=== PATIENT | female | born 1945 | race Caucasian/White ===

== ENCOUNTER 2016-06-15 08:02 | Inpatient (IN) | payer OTHER ==
[2016-05-21 13:19] VITALS: BMI 35.0
--- NOTE | 2016-05-21 13:44 | PAT Medication Instructions ---
Service Date May 21, 2016. Current Home Medication List Acetaminophen (Tylenol Arthritis Ext Rel), 1,300 MG PO BID Esomeprazole Magnesium (Nexium), 20 MG PO QAM Levothyroxine Sodium (Levothyroxine Sodium), 1 TAB PO QAM Lisinopril (Prinivil), 20 MG PO QAM Meloxicam (Mobic), 7.5 MG PO QAM Simvastatin (Zocor), 20 MG PO QAM Tramadol (Ultram), 50 MG PO Q4H PRN for Pain Medication Instructions For Your Scheduled Surgery - Hold the following medications per surgeon's instructions: Meloxicam (Mobic), 7.5 MG PO QAM - Hold the following medications the morning of surgery: Lisinopril (Prinivil), 20 MG PO QAM - Take the following medications the morning of surgery with a sip of water: Acetaminophen (Tylenol Arthritis Ext Rel), 1,300 MG PO BID (may take if needed up to 4 hours prior to surgery) Tramadol (Ultram), 50 MG PO Q4H PRN for Pain (may take if needed up to 4 hours prior to surgery) Simvastatin (Zocor), 20 MG PO QAM Levothyroxine Sodium (Levothyroxine Sodium), 1 TAB PO QAM Esomeprazole Magnesium (Nexium), 20 MG PO QAM - Take the following medications as scheduled the night before surgery: Acetaminophen (Tylenol Arthritis Ext Rel), 1,300 MG PO BID If you have any questions please call us at [phone] or [phone] or [phone]
--- NOTE | 2016-05-21 14:20 | DIAGNOSTIC IMAGING REPORT ---
CHEST 2 VIEWS ROUTINE HISTORY: Preop. COMPARISON: None. FINDINGS: The lungs are clear. Cardiac silhouette is normal in size. No pleural effusions. No pneumothorax. Calcified plaque within the thoracic aorta. IMPRESSION: No acute process. Electronically signed by: Ramos Pope M.D. 05/21/2016 2:19 PM Dictated Date/Time: 05/21/2016 2:17 PM
[2016-05-21 14:25] LABS: BASO % 0.5 %; BASO ABS # 0.03 K/uL (0-0.2); COMPLETE YES; EOS % 2.1 %; HEMATOCRIT 39.3 % (37-47); IG% 0.2 %; LYMPH % 28.1 %; LYMPH ABS # 1.57 K/uL (1.2-3.4); MEAN CELL VOLUME 92.7 fL (80-100); MEAN CORPUSCULAR HEMOGLOBIN 31.1 pg (25-34); MEAN CORPUSCULAR HGB CONC 33.6 g/dl (32-36); MEAN PLATELET VOLUME 12.4 fL (7.4-10.4); MONO % 6.6 %; NEUT % 62.5 %; PLATELET COUNT 177 K/uL (130-400); RED BLOOD COUNT 4.24 M/uL (4.2-5.4); WHITE BLOOD COUNT 5.59 K/uL (4.8-10.8)
[2016-05-21 14:35] LABS: PROTHROMBIN TIME (PATIENT) 10.6 SECONDS (9.0-12.0)
[2016-05-21 14:45] LABS: BUN/CREATININE RATIO 18.9 (10-20); CREATININE 1.4 mg/dl (0.60-1.20); POTASSIUM 5.1 mmol/L (3.5-5.1)
[2016-05-21 15:03] LABS: URINE APPEARANCE CLEAR (CLEAR); URINE BILIRUBIN NEG (NEG); URINE COLOR YELLOW; URINE NITRITE NEG (NEG); URINE SPECIFIC GRAVITY 1.028 (1.000-1.030); UROBILINOGEN NEG (NEG); ZZUR CULT IF INDIC CLEAN CATCH NO
[2016-05-21 15:09] LABS: MANUAL MICROSCOPIC REQUIRED? NO; REVIEW REQ? NO
--- NOTE | 2016-06-12 12:05 | HISTORY & PHYSICAL EXAMINATION ---
DATE OF ADMISSION: 06/15/2016 CHIEF COMPLAINT: Left knee pain. HISTORY OF PRESENT ILLNESS: Ms. Thompson is a 71-year-old female with a 10-year history of pain in her left knee. The patient rates her pain a 9/10. She has pain with her daily activities. She has limited standing and walking tolerance. Pain is worse with weightbearing. The patient has had injections and home exercise program without relief. She has failed conservative treatment and is scheduled for a left knee replacement. PAST MEDICAL HISTORY: Hypertension, hypercholesterolemia, sleep apnea, osteoarthritis and GERD. She denies heart disease, diabetes or DVT. PAST SURGICAL HISTORY: D\T\C and tubal ligation. SOCIAL HISTORY: The patient denies alcohol or tobacco use. She lives in a 2-singh home. She is planning to stay with a friend postoperatively and she is retired. FAMILY HISTORY: Negative for DVT. MEDICATIONS: Levothyroxine 112 mcg daily, lisinopril 20 mg daily, Nexium over the counter, Meloxicam 7.5 mg daily, tramadol 50 mg 2 tablets daily, Tylenol Arthritis 650 mg 4 tablets daily, and simvastatin 20 mg daily. ALLERGIES: SULFA. REVIEW OF SYSTEMS: See HPI. Ten other systems reviewed, all negative. PHYSICAL EXAMINATION: VITAL SIGNS: Height 5 foot 5 inches. Weight 211 pounds. BMI is 36. GENERAL: This is a well-developed, well-nourished female who is alert and oriented x3. Mood and affect are appropriate. HEENT: Normocephalic, atraumatic. Mucous membranes are moist and intact. NECK: Supple without lymphadenopathy. HEART: Regular rate and rhythm without murmurs, rubs or gallops. LUNGS: Clear to auscultation without wheezes or rhonchi. ABDOMEN: Soft and nontender. Bowel sounds are equal and active. EXTREMITIES: No ecchymosis, redness or warmth. Thigh and calf are soft and nontender. She has a varus deformity. Range of motion is from 10-100 degrees with +1 laxity. She is neurovascularly intact with +5/5 strength. She has no distal edema. X-RAY EXAMINATION: AP and lateral views show joint space narrowing and osteophyte formation. IMPRESSION: Degenerative joint disease, left knee. PLAN: The patient will be admitted for a left total knee arthroplasty. We will plan on aspirin for DVT prophylaxis. The patient's PCP is Dr. Ino Overton. She is doing home health on discharge.
[~2016-06-15] VITALS: Ht 165.1 cm; Wt 96.9 kg
[2016-06-15] VITALS (8 sets, daily range): BP systolic 124–151; BP diastolic 63–96; PULSE 81–110; TEMP 36.7–36.9; O2SAT 95–97; Ht 165.1 cm; Wt 96.9 kg
[~2016-06-15 08:02] MED LIST: ACET1TAB84 PO; ACETAMINOPHEN 500 MG TAB PO SCH; BUPIVACAINE 0.25% 30 ML VIAL ONE; BUPIVACAINE 0.5 % 5 MG/1 ML PF 10ML VIAL ONE; CEFAZOLIN 2000 MG/60 ML D5W 60 ML IV SCH; DEXAMETHASONE 4 MG TAB PO SCH; ESOM20CA PO; FAMOTIDINE 20 MG TAB PO SCH; GABAPENTIN 300 MG CAP PO SCH; LACTATED RINGER'S 1000ML IV SCH; LEVO112T4 PO; LISI20TA3 PO; MELO7.5T5 PO; METOCLOPRAMIDE HCL 10 MG TAB PO SCH; OXYCODONE HCL 10 MG TABCR (OXYCONTIN) PO SCH; POLYMYXIN B SULFATE 100,000 UNITS in NSS 100ML IR SCH; ROPIVACAINE 5MG/ML 30 ML 150 MG, BUPIVACAINE/EPINEPHR 0.5% MPF 30 ML, KETOROLAC TROMETH... INFIL SCH; SIMV20TA2 PO; TRAM-10 PO; VANCOMYCIN INJ 400 MG in NSS 100ML IR SCH
--- NOTE | 2016-06-15 09:18 | History & Physical Bridge Note ---
H&P Re-Evaluation Bridge Note: I have examined the patient, reviewed the History & Physical and in the interval since the performance of the History & Physical I have noted the following changes of clinical significance: No changes noted
[2016-06-15] MEDS: TRANEXAMIC ACID INJ 1,000 MG in SODIUM CHLORIDE 0.9% 100ML 100 ML IV SCH ×2 (09:30→14:28)
[2016-06-15] MEDS ORDERED: MIDAZOLAM HCL 1 MG/ML 2ML VIAL ONE (09:35)
[2016-06-15] MEDS ORDERED: FENTANYL CITRATE INJ 50 MCG/1 ML 2 ML VIAL ONE (09:35)
[2016-06-15] MEDS ORDERED: LACTATED RINGER'S 1000ML 1,000 ML IV PRN (09:53)
[2016-06-15] MEDS ORDERED: ORTHO JOINT ANESTHETIC ONE (09:57)
[2016-06-15] MEDS ORDERED: BUPIVACAINE/EPINEPHRINE 0.25% 1:200,000 30 ML VIAL ONE (09:57)
[2016-06-15] MEDS ORDERED: BACITRACIN 50000 UNIT VIAL ONE (09:58)
[2016-06-15] MEDS ORDERED: POVIDONE-IODINE OP SOLN 30 ML BTL ONE (09:58)
[2016-06-15] MEDS ORDERED: FENTANYL CITRATE INJ 50 MCG/1 ML 2 ML VIAL IV PRN (10:00)
[2016-06-15] MEDS ORDERED: ONDANSETRON INJ 2 MG/ML 2 ML VIAL IV PRN ×2 (10:00→12:00)
--- NOTE | 2016-06-15 11:47 | [facility] Post Operative Brief Note ---
Immediate Operative Summary Operative Date Jun 15, 2016. Pre-Operative Diagnosis Degenerative Joint Disease Left Knee Post-Operative Diagnosis Degenerative Joint Disease Left Knee Procedure(s) Performed Left Total Knee Arthroplasty Surgeon Dr. Shay Sutton [employer] Surgeon(s) SAMUEL Mclain Estimated Blood Loss 50 ml Findings DJD Specimens A. Left Knee Bone and Tissue Complication(s) None Disposition Recovery Room / PACU
[2016-06-15] MEDS ORDERED: PROPOFOL IV EMULSION 10 MG/ML 20 ML VIAL IV ONE (11:58)
[2016-06-15] MEDS ORDERED: BISACODYL 10 MG SUPP PR PRN (12:00)
[2016-06-15] MEDS ORDERED: ZOLPIDEM TARTRATE 5 MG TAB PO PRN (12:00)
[2016-06-15] MEDS ORDERED: ALUMINUM/MAGNESIUM/SIMETH (MAALOX MAX) 30 ML UDC PO PRN (12:00)
[2016-06-15] MEDS ORDERED: METOCLOPRAMIDE HCL INJ 5 MG/ML 2 ML VIAL IV PRN (12:00)
[2016-06-15] MEDS ORDERED: MoRPHine SULFATE 2 MG/ML CARP IV PRN (12:00)
[2016-06-15] MEDS ORDERED: TRAMADOL HCL 50 MG TAB PO PRN (12:00)
[2016-06-15] MEDS ORDERED: DiphenhydrAMINE HCL 50 MG/ML VIAL IV PRN (12:00)
[2016-06-15] MEDS ORDERED: MAGNESIUM HYDROXIDE SUSP 30 ML UDC PO PRN (12:00)
[2016-06-15] MEDS ORDERED: SOD PHOSPHATE/SOD BIPHOSPHATE ENEMA 132 ML BTL PR PRN (12:00)
--- NOTE | 2016-06-15 13:00 | DIAGNOSTIC IMAGING REPORT ---
TWO VIEWS LEFT KNEE CLINICAL HISTORY: Postoperative examination. FINDINGS: AP and crosstable lateral portable views of the left knee are obtained. A left knee arthroplasty is in near anatomic alignment. There has been undersurface remodeling of the patella. No acute fracture is seen. There are expected postoperative changes around the knee including a surgical drain, soft tissue edema, and subcutaneous gas. IMPRESSION: Expected postoperative changes status post left knee arthroplasty. No acute fracture is seen. Electronically signed by: Jose Kinney M.D. 06/15/2016 12:59 PM Dictated Date/Time: 06/15/2016 12:58 PM
--- NOTE | 2016-06-15 13:27 | Anesthesiology Progress Note ---
Anesthesia Post Op Note Date & Time Jun 15, 2016 at 13:28 Vital Signs Pain Intensity: 0 Vital Signs Past 12 Hours Date Time Temp Pulse Resp B/P Pulse Ox O2 Delivery O2 Flow Rate FiO2 06/15/16 13:15 81 16 114/56 95 Nasal Cannula 2 06/15/16 13:00 36.7 86 13 127/59 95 Nasal Cannula 2 06/15/16 12:50 92 24 132/60 97 Nasal Cannula 2 06/15/16 12:40 80 12 128/64 95 Nasal Cannula 2 06/15/16 12:30 91 24 128/64 97 Mask 10 06/15/16 12:24 37.0 99 16 136/70 96 Mask 10 06/15/16 08:28 36.7 110 20 147/64 97 Room Air Notes Mental Status: alert / awake / arousable, participated in evaluation Pt Amnestic to Procedure: No Nausea / Vomiting: adequately controlled Pain: adequately controlled Airway Patency, RR, SpO2: stable & adequate BP & HR: stable & adequate Hydration State: stable & adequate Neuraxial Anesthesia: was administered, sensory block is resolving Anesthetic Complications: no major complications apparent Pt doing very well. Recall as expected.
--- NOTE | 2016-06-15 14:23 | Discharge Instructions ---
Discharge Instructions Date of Service Jun 15, 2016. Admission Reason for Admission: Left Knee Dengerative Arthritis Discharge Discharge Diagnosis / Problem: sp left total knee Discharge Goals Goal(s): Decrease discomfort, Improve function, Increase independence Activity Recommendations Activity Limitations: per Instructions/Follow-up section . Instructions / Follow-Up Instructions / Follow-Up ACTIVITY RECOMMENDATIONS: SELF CARE INSTRUCTIONS AFTER TOTAL KNEE REPLACEMENT A. You may need to continue a physical therapy program after discharge from the hospital. There are several options available to you. Your doctor will assist you in selecting the best one for you. 1. An out-patient facility 2 to 3 times a week for therapy or home therapy. 2. Continue working on all exercises taught to you in the hospital. Your goals should be to increase bending of your knee to 90 degrees and beyond and to fully straighten your knee. B. You may progress at your own pace from walking with a walker or crutches to a cane; then to no assistive devices. C. Make walking a part of your daily routine. Be up as much as comfortable with rest periods throughout the day. Rest with leg elevation is very important. Use the ice wrap frequently for the first 3-4 weeks. D. There are no restrictions on activities. You may ride in a car, shop, participate in spanish translator and all social activities. E. Wear the long elastic stockings (CARLO hose) 20 hours a day for 2 weeks after surgery. They can be removed several times a day for laundering and for a bath. F. You may shower, no tub baths until cleared by your doctor. SPECIAL CARE INSTRUCTIONS: VERY IMPORTANT TO READ AND REVIEW A. There are a few signs you need to watch for after you are home. Call [facility] if you notice any of the followin. Increased severe knee pain. Some pain is expected especially when you exercise. 2. Increased swelling in your leg or knee; pain or swelling of the calf muscle in either lower leg. 3. Any fluid drainage from the incision. 4. Shortness of breath or chest pain. B. Please call [facility] at if you have any concerns or questions about your operation or recovery. The doctor or his nurse will return your call promptly. C. You must take antibiotics before dental work, bladder, bowel or other surgery. Your doctor will provide you with a permanent care to carry describing this precaution. IMPORTANT: * REMEMBER TO TAKE ASPIRIN, 81 MG, TWICE DAILY FOR 4 WEEKS UNLESS OTHERWISE DIRECTED. THIS IS YOUR BLOOD THINNER. * HIGH RISK PATIENTS MAY BE PRESCRIBED A STRONGER BLOOD THINNER. THIS WILL BE PROVIDED AT DISCHARGE. * CALL IF INCREASED PAIN, REDNESS, DRAINAGE OR FEVER GREATER THAT 101. * WEAR CARLO HOSE 20 HOURS PER DAY FOR 2 WEEKS. DERMABOND Prineo- This is a mesh tape dressing that is covered with glue. It should remain in place until the incision is properly healed, usually 10-14 days. This dressing is designed to naturally slough off. You may trim the excess mesh tape as it peels off. Incision may be briefly wet in a shower. Dry immediately by blotting with a clean, dry towel. Do not bath or swim until instructed by your doctor. Do not scratch, rub, or pick at the dressing. Do not apply any topical ointments or lotions until dressing is completely removed and/or instructed by your doctor. There may be a small piece of suture material at one end of your incision. Do not pull or trim this. If it is bothersome or catching on clothing, you may cover it with a band-aid. FOLLOW UP VISIT: If appointment is not already scheduled: Please call [facility] to make a follow-up appointment for 2 weeks after your surgery at . Current Hospital Diet Patient's current hospital diet: Regular Diet Discharge Diet Recommended Diet: Regular Diet Procedures Procedures Performed: Left Total Knee Arthroplasty Pending Studies Studies pending at discharge: no Medical Emergencies . Who to Call and When: Medical Emergencies: If at any time you feel your situation is an emergency, please call 911 immediately. . Non-Emergent Contact Non-Emergency issues call your: Surgeon . "Provider Documentation" section prepared by Gosia Stock. VTE Core Measure Inpt VTE Proph given/why not?: Other Anticoagulation, T.E.D. Stockings, SCD's
[2016-06-15] MEDS: D5W AND 1/2NSS + 20MEQ KCL 1,000 ML IV SCH (14:29)
--- NOTE | 2016-06-15 14:58 | OPERATIVE REPORT ---
DATE OF OPERATION: 06/15/2016 PREOPERATIVE DIAGNOSIS: Degenerative arthritis, left knee. POSTOPERATIVE DIAGNOSIS: Same. PROCEDURE: Left total knee patient matched implant. SURGEON: Dr. Sutton. COMMUNICATIONS EQUIPMENT INSTALLER: SAMUEL Mclain. ANESTHESIA: Spinal. BLOOD LOSS: 50 mL. REPLACEMENT FLUIDS: 1600 mL crystalloid. DRAINS: Hemovac x2. CULTURES: None. COMPLICATIONS: None. COMPONENTS USED: Sanchez \T\ Nephew Jourchamberino knee system: Femur size 4, tibia size 3 x 11, patella size 35. NOTE: Gato Ga was present and assisted throughout due to the complicated nature of this case. He helped with preparation and setup, first assisted throughout and personally closed the capsule, subcutaneous and skin layers and applied the postoperative dressing. DESCRIPTION: Following satisfactory spinal, the patient was supine. A tourniquet was placed but not inflated. The lower extremity was prepared with ChloraPrep and draped sterilely. Following a surgical time-out, a midline incision was made with a trivector approach. The knee showed severe grade 4 changes throughout with significant bone loss in the medial compartment. The anterior cruciate ligament was absent. The posterior cruciate ligament was excised. The patient matched femoral block was applied. Femoral distal rotation and resection were set and completed. The 4-in-1 block was used to finish preparation of the femur. The patient matched tibial block was applied. Tibial resection was completed. The patella was freehand cut. Soft tissue balancing was completed and a trial reduction showed good tensioning and stability on the collateral ligaments. The patella tracked well. The trial components were removed. The capsule was prepared with the orthopedic cocktail and following irrigation, the components were cemented using Simplex G cement. When the cement had hardened, the knee was checked and showed good stability. Betadine soak was performed while the cement was hardening. The Betadine was then irrigated. Two drains were placed. The arthrotomy was closed with a running suture of V-Loc and #1 Vicryl. The subcutaneous tissues with 2-0 Vicryl and the skin with a running subcuticular stitch of 3-0 V-Loc. Dermabond and a dry dressing were applied and the patient was returned to her bed in stable condition. I attest to the content of the Intraoperative Record and any orders documented therein. Any exceptio ns are noted below.
[2016-06-15] MEDS ORDERED: TRANEXAMIC ACID INJ 1,000 MG in SODIUM CHLORIDE 0.9% 100ML 100 ML IV ONE (19:00)
[2016-06-15] MEDS: CEFAZOLIN IV 2,000 MG in DEXTROSE 5% 50ML 50 ML IV SCH (19:25)
[2016-06-15] MEDS: SENNA 8.6 MG TAB PO SCH (20:49)
[2016-06-15] MEDS: ASPIRIN 81 MG ECTAB PO SCH (20:50)
[2016-06-15] MEDS: OXYCODONE HCL 10 MG TABCR (OXYCONTIN) PO SCH (20:50)
[2016-06-15] MEDS: ACETAMINOPHEN 500 MG TAB PO SCH (20:50)
[2016-06-16] MEDS: D5W AND 1/2NSS + 20MEQ KCL 1,000 ML IV SCH ×2 (00:51→10:18)
[2016-06-16 03:00] VITALS: BP 111/66; PULSE 75; TEMP 36.6; O2SAT 96
[2016-06-16] MEDS: CEFAZOLIN IV 2,000 MG in DEXTROSE 5% 50ML 50 ML IV SCH (03:07)
[2016-06-16] MEDS: ACETAMINOPHEN 500 MG TAB PO SCH ×3 (06:23→21:17)
[2016-06-16] MEDS: LEVOTHYROXINE 112 MCG TAB PO SCH (06:24)
[2016-06-16 06:29] LABS: HEMATOCRIT 32.4 % (37-47); MEAN CELL VOLUME 90.5 fL (80-100); MEAN CORPUSCULAR HEMOGLOBIN 30.4 pg (25-34); MEAN CORPUSCULAR HGB CONC 33.6 g/dl (32-36); MEAN PLATELET VOLUME 11.9 fL (7.4-10.4); PLATELET COUNT 150 K/uL (130-400); RED BLOOD COUNT 3.58 M/uL (4.2-5.4); WHITE BLOOD COUNT 12.02 K/uL (4.8-10.8)
[2016-06-16 07:09] LABS: BUN/CREATININE RATIO 19.1 (10-20); CALCIUM 8.7 mg/dl (8.5-10.1); CREATININE 1.4 mg/dl (0.60-1.20); POTASSIUM 4.7 mmol/L (3.5-5.1)
[2016-06-16 07:38] VITALS: BP 100/61; PULSE 76; TEMP 36.7; O2SAT 97
--- NOTE | 2016-06-16 07:49 | Anesthesiology Progress Note ---
Anesthesia Post Op Note Date & Time Jun 16, 2016 at 07:49 Vital Signs Pain Intensity: 0.0 Vital Signs Past 12 Hours Date Time Temp Pulse Resp B/P Pulse Ox O2 Delivery O2 Flow Rate FiO2 06/16/16 07:38 36.7 76 18 100/61 97 Room Air 06/16/16 07:10 Room Air 06/16/16 03:00 36.6 75 18 111/66 96 CPAP 06/16/16 00:45 BiPAP 06/15/16 23:00 36.9 86 18 131/69 97 Room Air Notes Mental Status: alert / awake / arousable, participated in evaluation Pt Amnestic to Procedure: Yes Nausea / Vomiting: adequately controlled Pain: adequately controlled Airway Patency, RR, SpO2: stable & adequate BP & HR: stable & adequate Hydration State: stable & adequate Neuraxial Anesthesia: sensory block resolved Anesthetic Complications: no major complications apparent
[2016-06-16] MEDS: LISINOPRIL 20 MG TAB PO SCH (08:18)
[2016-06-16] MEDS: MULTIVITAMIN TAB PO SCH (08:19)
[2016-06-16] MEDS: SIMVASTATIN 20 MG TAB PO SCH (08:19)
[2016-06-16] MEDS: PANTOprazole SOD 40 MG TAB PO SCH (08:20)
[2016-06-16] MEDS: ASPIRIN 81 MG ECTAB PO SCH ×2 (08:22→21:18)
[2016-06-16] MEDS: OXYCODONE HCL 10 MG TABCR (OXYCONTIN) PO SCH ×2 (08:23→21:17)
[2016-06-16] MEDS: OXYCODONE HCL IR 5 MG TAB (IMMEDIATE RELEASE) PO PRN ×2 (10:30→16:33)
[2016-06-16 11:30] VITALS: BP 135/74; PULSE 74; TEMP 36.9; O2SAT 100
--- NOTE | 2016-06-16 11:53 | Orthopedic Progress Note ---
Orthopedic Progress Note Date of Service Jun 16, 2016. Subjective Post OP Day: 1 Reports: feeling well, Denies: SOB, calf pain, chest pain, light headedness, nausea / vomiting Additional Notes: States that she started having some mild pain this AM and was given OxyIR prior to my visit. No other complaints. Objective calves soft nontender, N/V intact, dressing C/D/I, A&O x3, toes mobile, hemovac drainage (85 latest shift) Date Time Temp Pulse Resp B/P Pulse Ox O2 Delivery O2 Flow Rate FiO2 06/16/16 11:30 36.9 74 16 135/74 100 Room Air 06/16/16 07:38 36.7 76 18 100/61 97 Room Air 06/16/16 07:10 Room Air 06/16/16 03:00 36.6 75 18 111/66 96 CPAP 06/16/16 00:45 BiPAP 06/15/16 23:00 36.9 86 18 131/69 97 Room Air 06/15/16 19:37 36.7 89 18 136/72 95 Room Air 06/15/16 16:46 36.9 81 18 124/69 95 Nasal Cannula 2.0 06/15/16 15:49 36.7 90 18 130/74 96 Nasal Cannula 2.0 06/15/16 15:15 Nasal Cannula 2.0 06/15/16 14:50 98 20 143/78 97 Nasal Cannula 2.0 06/15/16 14:26 101 20 140/96 96 Nasal Cannula 2.0 06/15/16 13:50 96 Nasal Cannula 2.0 06/15/16 13:50 36.9 95 16 151/63 96 Nasal Cannula 2.0 06/15/16 13:50 96 Nasal Cannula 2.0 06/15/16 13:30 90 17 123/55 93 Nasal Cannula 2 06/15/16 13:15 81 16 114/56 95 Nasal Cannula 2 06/15/16 13:00 36.7 86 13 127/59 95 Nasal Cannula 2 06/15/16 12:50 92 24 132/60 97 Nasal Cannula 2 06/15/16 12:40 80 12 128/64 95 Nasal Cannula 2 06/15/16 12:30 91 24 128/64 97 Mask 10 06/15/16 12:24 37.0 99 16 136/70 96 Mask 10 Laboratory Results 24 Hours: Test 06/16/16 05:56 Hematocrit 32.4 % Hemoglobin 10.9 g/dL Assessment & Plan Assessment: POD 1 s/p Left TKA Plan: PT/OT Planning for Home with OPPT tomorrow at [facility] Inhouse Planning Pain Management: Toradol, Oxycontin, Ultram, Morphine, PO Tylenol, Oxy IR DVT Prophylaxis: TEDs, SCDs, ASA Discharge Planning Discharge Planning: home with oppt Pain Management: Oxycontin, PO Tylenol, Oxy IR DVT Prophylaxis: TEDs, ASA Therapy: Physical Therapy
[2016-06-16 12:02] VITALS: BP 135/74; PULSE 74; O2SAT 100
[2016-06-16] MEDS: KETOROLAC TROMETHAMINE 15 MG/ML VIAL IV. PRN (13:29)
[2016-06-16 15:47] VITALS: BP 127/74; PULSE 77; TEMP 36.9; O2SAT 99
[2016-06-16] MEDS: SENNA 8.6 MG TAB PO SCH (21:18)
[2016-06-16 23:02] VITALS: BP 116/65; PULSE 85; TEMP 36.9; O2SAT 98
[2016-06-17] MEDS: OXYCODONE HCL IR 5 MG TAB (IMMEDIATE RELEASE) PO PRN ×2 (05:00→09:15)
[2016-06-17] MEDS: LEVOTHYROXINE 112 MCG TAB PO SCH (05:43)
[2016-06-17] MEDS: ACETAMINOPHEN 500 MG TAB PO SCH (05:43)
--- NOTE | 2016-06-17 07:07 | Clinical Documentation Query ---
[facility] : CLINICAL DOCUMENTATION QUERY Patient is a 71 year old female who underwent elective left TKA on 06/15. Admission laboratory value review demonstrates a BUN and creatinine of 26 mg/dl and 1.40 mg/dl. Associated estimated GFR is 37 ml/min. There is no documentation of CKD on the H&P. There are no historical EMR values for comparison to this reader. Please clarify as clinically appropriate. Thank you. In your clinical opinion is this patient being managed for: ( ) Chronic kidney disease, stage 3 ( ) CHERYL ( ) Other explanation of clinical findings (Please Explain) ( ) Unable to determine (Please Define) ( ) Need to Discuss ( ) Not Agree The medical record reflects the following clinical findings, treatment, and risk factors. Clinical Indicators: As above Treatment: Serial chemistries, IVF Risk Factors: Age, hypertension Please clarify and document your clinical opinion in the progress notes and discharge summary. Terms such as "probable", "suspected", "likely", "questionable", "possible", or "still to be ruled out" are acceptable. IF IN AGREEMENT, YOU MUST DOCUMENT ABOVE DIAGNOSTIC STATEMENT IN DAILY PROGRESS NOTES AND DISCHARGE SUMMARY. This document is not part of the patient's record. Thank You, Alex Mckinnon, RN [phone]
[2016-06-17] MEDS: KETOROLAC TROMETHAMINE 15 MG/ML VIAL IV. PRN (07:46)
[2016-06-17 07:54] VITALS: BP 118/60; PULSE 75; TEMP 36.6; O2SAT 99
[2016-06-17 08:25] VITALS: O2SAT 99
--- NOTE | 2016-06-17 08:51 | Orthopedic Progress Note ---
Orthopedic Progress Note Date of Service Jun 17, 2016. Subjective Post OP Day: 2 Reports: complaints (had a little more pain off and on since yesterday but tolerating well), feeling well, Denies: SOB, calf pain, chest pain, light headedness, nausea / vomiting Additional Notes: Sitting in chair this AM. States that she had some pain during the night but with medications, she has been doing ok with it. Asking about erythema around knee today. Objective calves soft nontender, N/V intact, incision C/D/I, A&O x3, toes mobile She has more erythema around the knee this AM than yesterday. Nontender on palpation. Not overtly hot to touch compared to other areas of her knee. Appears to be bruising/erythema. Date Time Temp Pulse Resp B/P Pulse Ox O2 Delivery O2 Flow Rate FiO2 06/17/16 08:25 99 Room Air 06/17/16 08:00 Room Air 06/17/16 07:54 36.6 75 14 118/60 99 Room Air 06/17/16 00:00 Room Air 06/16/16 23:02 36.9 85 16 116/65 98 BiPAP 06/16/16 19:50 Room Air 06/16/16 15:47 36.9 77 16 127/74 99 Room Air 06/16/16 12:02 74 100 06/16/16 11:30 36.9 74 16 135/74 100 Room Air Assessment & Plan Assessment: POD 2 s/p Left TKA Increased bruising/erythema Plan: PT/OT Will have Dr Mckinney see pt to look at her knee prior to any decision to dc today. Planning for Home with OPPT today at [facility] if approved by Dr Mckinney for dc Inhouse Planning Pain Management: Toradol, Oxycontin, Ultram, Morphine, PO Tylenol, Oxy IR DVT Prophylaxis: TEDs, SCDs, ASA Discharge Planning Discharge Planning: home with oppt Pain Management: Oxycontin, PO Tylenol, Oxy IR DVT Prophylaxis: TEDs, ASA Therapy: Physical Therapy
[2016-06-17] MEDS ORDERED: ACET-1138 PO (08:53)
[2016-06-17] MEDS ORDERED: SNK PO (08:53)
[2016-06-17] MEDS ORDERED: ONDA8TAB6 PO (08:53)
[2016-06-17] MEDS ORDERED: MORP15TA19 PO (08:53)
[2016-06-17] MEDS ORDERED: RXC5 PO (08:53)
[2016-06-17] MEDS ORDERED: ASPEC81 PO (08:53)
[2016-06-17] MEDS: SIMVASTATIN 20 MG TAB PO SCH (09:12)
[2016-06-17] MEDS: MULTIVITAMIN TAB PO SCH (09:12)
[2016-06-17] MEDS: ASPIRIN 81 MG ECTAB PO SCH (09:12)
[2016-06-17] MEDS: LISINOPRIL 20 MG TAB PO SCH (09:12)
[2016-06-17] MEDS: OXYCODONE HCL 10 MG TABCR (OXYCONTIN) PO SCH (09:13)
[2016-06-17] MEDS: PANTOprazole SOD 40 MG TAB PO SCH (09:13)
[2016-06-17] MEDS ORDERED: CEPH500C2 PO (11:41)
[2016-06-17 13:26] VITALS: BP 118/60; PULSE 75; TEMP 36.6; O2SAT 99
== END 2016-06-17 14:15 | disposition home or self-care (01) | DRG 470 ==
LOC: ENRESERVDT → ENRESERVTM → C.ACU 08:02 → C.3E 11:50
PROVIDERS: ADMIT Orthopaedic Surgery; ATTEND Orthopaedic Surgery
PROC: 0SRD0J9 Replacement of Left Knee Joint with Synthetic Substitute, Cemented, Open Approach (ICD-10-PCS; principal; 2016-06-15 10:15)
DX: M17.12 Unilateral primary osteoarthritis, left knee (principal); K21.9 Gastro-esophageal reflux disease without esophagitis; E78.00 Pure hypercholesterolemia, unspecified; I10 Essential (primary) hypertension; G47.30 Sleep apnea, unspecified; E03.9 Hypothyroidism, unspecified; E66.9 Obesity, unspecified; Z68.35 Body mass index [BMI] 35.0-35.9, adult; Z79.1 Long term (current) use of non-steroidal anti-inflammatories (NSAID); Z99.89 Dependence on other enabling machines and devices; Z79.891 Long term (current) use of opiate analgesic; Z79.899 Other long term (current) drug therapy

== ENCOUNTER 2017-07-12 04:51 | Inpatient (IN) | payer OTHER ==
[2017-06-15 11:12] VITALS: BMI 37.0
--- NOTE | 2017-06-15 11:40 | PAT Medication Instructions ---
Service Date Jun 15, 2017. Current Home Medication List Acetaminophen (Tylenol Arthritis Ext Rel), 1,300 MG PO Q8H PRN for PRN Esomeprazole Magnesium (Nexium), 20 MG PO QAM Levothyroxine Sodium (Levothyroxine Sodium), 1 TAB PO QAM Lisinopril (Prinivil), 20 MG PO QAM Naproxen (Aleve), 440 MG PO PRN Simvastatin (Zocor), 20 MG PO QAM Tramadol (Ultram), 50 MG PO Q4H PRN for Pain Medication Instructions For Your Scheduled Surgery - Check with surgeon for instructions: Naproxen (Aleve), 440 MG PO PRN - Hold the following medications the morning of surgery: Lisinopril (Prinivil), 20 MG PO QAM - Take the following medications the morning of surgery with a sip of water: Tramadol (Ultram), 50 MG PO Q4H PRN for Pain (okay to take up to 4 hours prior to surgery if needed) Acetaminophen (Tylenol Arthritis Ext Rel), 1,300 MG PO Q8H PRN for PRN(okay to take up to 4 hours prior to surgery if needed) Simvastatin (Zocor), 20 MG PO QAM Levothyroxine Sodium (Levothyroxine Sodium), 1 TAB PO QAM Esomeprazole Magnesium (Nexium), 20 MG PO QAM - Take the following medications as scheduled the night before surgery: Tramadol (Ultram), 50 MG PO Q4H PRN for Pain (if needed) Acetaminophen (Tylenol Arthritis Ext Rel), 1,300 MG PO Q8H PRN for PRN (if needed) If you have any questions please call us at [phone] or [phone] or [phone]
[2017-06-15 12:19] LABS: BASO % 0.6 %; BASO ABS # 0.03 K/uL (0-0.2); EOS % 4.3 %; EOS ABS # 0.21 K/uL (0-0.5); HEMATOCRIT 37.2 % (37-47); HEMOGLOBIN 12.8 g/dL (12.0-16.0); IG# 0.02 K/uL (0.00-0.02); LYMPH % 26.7 %; LYMPH ABS # 1.32 K/uL (1.2-3.4); MEAN CELL VOLUME 88.8 fL (80-100); MEAN CORPUSCULAR HEMOGLOBIN 30.5 pg (25-34); MEAN CORPUSCULAR HGB CONC 34.4 g/dl (32-36); MEAN PLATELET VOLUME 12.2 fL (7.4-10.4); MONO % 6.5 %; MONO ABS # 0.32 K/uL (0.11-0.59); NEUT % 61.5 %; NEUT ABS # 3.04 K/uL (1.4-6.5); PLATELET COUNT 157 K/uL (130-400); RED CELL DISTRIBUTION WIDTH CV 13.6 % (11.5-14.5); RED CELL DISTRIBUTION WIDTH SD 44.1 fL (36.4-46.3); WHITE BLOOD COUNT 4.94 K/uL (4.8-10.8)
[2017-06-15 12:26] LABS: ALBUMIN 3.7 gm/dl (3.4-5.0); CALCIUM 8.8 mg/dl (8.5-10.1); CREATININE 1.31 mg/dl (0.60-1.20); POTASSIUM 4.7 mmol/L (3.5-5.1)
[2017-06-15 12:28] LABS: PTT PATIENT 24.8 SECONDS (21.0-31.0)
--- NOTE | 2017-06-15 12:30 | DIAGNOSTIC IMAGING REPORT ---
CHEST 2 VIEWS ROUTINE CLINICAL HISTORY: PAT preoperative evaluation COMPARISON STUDY: 05/21/2016 FINDINGS: The bones soft tissues and hemidiaphragms are normal. The cardiomediastinal silhouette is normal. The lungs are clear. The pulmonary vasculature is normal. IMPRESSION: Negative chest. The above report was generated using voice recognition software. It may contain grammatical, syntax or spelling errors. Electronically signed by: Esteban Astudillo M.D. 06/15/2017 12:28 PM Dictated Date/Time: 06/15/2017 12:28 PM
[2017-06-15 12:49] LABS: HEMOGLOBIN A1C 5.8 % (4.5-5.6)
--- NOTE | 2017-06-23 14:28 | HISTORY & PHYSICAL EXAMINATION ---
DATE OF ADMISSION: 07/12/2017 CHIEF COMPLAINT: Right knee pain. HISTORY OF PRESENT ILLNESS: Aisha is a 72-year-old female with a multiple-year history of right knee pain. The patient rates her pain an 8/10. She has pain with her daily activities. She has limited standing and walking tolerance. Pain is worse with weightbearing. The patient has had physical therapy, tramadol, Tylenol and Aleve without relief. She has failed conservative treatment and is scheduled for right knee replacement. PAST MEDICAL HISTORY: Hypertension, hypercholesterolemia, sleep apnea, thyroid disease. She denies heart disease, diabetes or DVT. PAST SURGICAL HISTORY: Left TKA and tubal ligation. SOCIAL HISTORY: The patient denies alcohol or tobacco use. She lives in a 2-story home. She is retired. FAMILY HISTORY: Negative for DVT. MEDICATIONS: Tirosint 112 mcg, simvastatin 20 mg, lisinopril 20 mg, tramadol 50 mg, Nexium 24HR, Aleve 220 p.r.n. ALLERGIES: SULFA. REVIEW OF SYSTEMS: See HPI. Ten other systems reviewed, all negative. PHYSICAL EXAMINATION: VITAL SIGNS: Height 5 feet 5 inches, weight 230 pounds, BMI 38. GENERAL: This is a well-developed, well-nourished female who is alert and oriented x3. Mood and affect are appropriate. HEENT: Normocephalic, atraumatic. Mucous membranes are moist and intact. NECK: Supple without lymphadenopathy. HEART: Regular rate and rhythm without murmurs, rubs or gallops. LUNGS: Clear to auscultation without wheezes or rhonchi. ABDOMEN: Soft and nontender. Bowel sounds are equal and active. EXTREMITIES: No ecchymosis, redness or warmth. She has varus deformity. Range of motion is from 5-110 degrees with +2 laxity. She is neurovascularly intact with +5/5 strength. She has mild effusion, mild distal edema. X-RAY EXAMINATION: AP and lateral views show joint space narrowing and osteophyte formation. IMPRESSION: Degenerative joint disease, right knee. PLAN: The patient will be admitted for right total knee arthroplasty. We are going to plan on aspirin 325 mg for DVT prophylaxis. The patient would like to do outpatient physical therapy at [facility]. PCP is Dr. Rosenthal of [place].
[~2017-07-12] VITALS: Ht 167.6 cm; Wt 106.7 kg
[2017-07-12] VITALS (9 sets, daily range): BP systolic 109–146; BP diastolic 53–84; PULSE 75–97; TEMP 36.6–37.1; O2SAT 93–98; Ht 167.6 cm; Wt 106.7 kg
[~2017-07-12 04:51] MED LIST changes: -ACETAMINOPHEN 500 MG TAB PO SCH; -BUPIVACAINE 0.25% 30 ML VIAL ONE; -BUPIVACAINE 0.5 % 5 MG/1 ML PF 10ML VIAL ONE; -CEFAZOLIN 2000 MG/60 ML D5W 60 ML IV SCH; -DEXAMETHASONE 4 MG TAB PO SCH; -ESOM20CA PO; -FAMOTIDINE 20 MG TAB PO SCH; -GABAPENTIN 300 MG CAP PO SCH; -LACTATED RINGER'S 1000ML IV SCH; -MELO7.5T5 PO; -METOCLOPRAMIDE HCL 10 MG TAB PO SCH; +NAPR1TAB9 PO; -OXYCODONE HCL 10 MG TABCR (OXYCONTIN) PO SCH; -POLYMYXIN B SULFATE 100,000 UNITS in NSS 100ML IR SCH; +RANITAB33 PO; -ROPIVACAINE 5MG/ML 30 ML 150 MG, BUPIVACAINE/EPINEPHR 0.5% MPF 30 ML, KETOROLAC TROMETH... INFIL SCH; -VANCOMYCIN INJ 400 MG in NSS 100ML IR SCH
[2017-07-12] MEDS ORDERED: METOCLOPRAMIDE HCL 10 MG TAB PO SCH (06:00)
[2017-07-12] MEDS ORDERED: ACETAMINOPHEN 500 MG TAB PO SCH (06:00)
[2017-07-12] MEDS ORDERED: LACTATED RINGER'S 1000ML 1,000 ML IV SCH (06:00)
[2017-07-12] MEDS ORDERED: LACTATED RINGER'S 1000ML 500 ML IV SCH (06:00)
[2017-07-12] MEDS ORDERED: ROPIVACAINE 5MG/ML 30 ML 150 MG, BUPIVACAINE 0.5% MPF INJ 30 ML, EpINEphrine HCL INJ 0.... INFIL SCH ×16 (06:00)
[2017-07-12] MEDS ORDERED: FAMOTIDINE 20 MG TAB PO SCH (06:00)
[2017-07-12] MEDS ORDERED: GABAPENTIN 300 MG CAP PO SCH (06:00)
[2017-07-12] MEDS ORDERED: TRANEXAMIC ACID INJ 1,000 MG x 2 Bags IV SCH ×2 (06:00)
[2017-07-12] MEDS ORDERED: DEXAMETHASONE 4 MG TAB PO SCH (06:00)
[2017-07-12] MEDS ORDERED: CEFAZOLIN 2000MG IV PUSH 15 ML IV SCH (06:00)
[2017-07-12 06:03] LABS: CALCIUM 9.7 mg/dl (8.5-10.1); CREATININE 1.39 mg/dl (0.60-1.20); POTASSIUM 4.4 mmol/L (3.5-5.1)
[2017-07-12] MEDS ORDERED: BUPIVACAINE 0.5 % 5 MG/1 ML PF 10ML VIAL ONE (06:27)
[2017-07-12] MEDS ORDERED: ORTHO JOINT ANESTHETIC ONE (06:38)
[2017-07-12] MEDS ORDERED: BACITRACIN 50000 UNIT VIAL ONE (06:39)
[2017-07-12] MEDS ORDERED: POVIDONE-IODINE OP SOLN 30 ML BTL ONE (06:39)
[2017-07-12] MEDS ORDERED: FENTANYL CITRATE INJ 50 MCG/1 ML 2 ML VIAL ONE (06:44)
[2017-07-12] MEDS ORDERED: MIDAZOLAM HCL 1 MG/ML 2ML VIAL ONE ×2 (06:44→07:27)
[2017-07-12] MEDS ORDERED: ONDANSETRON INJ 2 MG/ML 2 ML VIAL IV PRN ×2 (06:45→09:15)
[2017-07-12] MEDS ORDERED: HYDROmorphone INJ 0.5 MG/0.5 ML SYR IV PRN (06:45)
[2017-07-12] MEDS ORDERED: EpHEDrine SULFATE INJ 50 MG/ML AMP IV PRN (06:45)
[2017-07-12] MEDS ORDERED: FENTANYL CITRATE INJ 50 MCG/1 ML 2 ML VIAL IV PRN (06:45)
[2017-07-12] MEDS ORDERED: ATROPINE SULFATE 0.1 MG/ML 5ML SYR IV PRN (06:45)
[2017-07-12] MEDS ORDERED: PHENYLEPHRINE HCL INJ 10 MG/ML VIAL ONE (07:52)
[2017-07-12] MEDS ORDERED: ESMOLOL HCL 10 MG/ML 10 ML VIAL ONE (07:52)
[2017-07-12] MEDS ORDERED: PROPOFOL IV EMULSION 10 MG/ML 20 ML VIAL IV ONE (07:52)
[2017-07-12] MEDS ORDERED: METOPROLOL TARTRATE 1 MG/ML VIAL ONE (08:25)
--- NOTE | 2017-07-12 09:00 | [facility] Post Operative Brief Note ---
Immediate Operative Summary Operative Date Jul 12, 2017. Pre-Operative Diagnosis Degenerative joint disease, right knee Post-Operative Diagnosis Same as preop Procedure(s) Performed Right total knee arthroplasty Surgeon Dr. Rojas Assistant Vice President Surgeon(s) Charla Ga PA-C Estimated Blood Loss 25 cc Findings Consistent with Post-Op Diagnosis Fluids (cc crystalloids) 1900 Specimens A: right knee bone and tissue Drains None Anesthesia Type MAC Spinal Regional Complication(s) none Disposition Disposition: Recovery Room / PACU
[2017-07-12] MEDS ORDERED: MoRPHine SULFATE 4 MG/ML 1 ML CARP\\VIAL IV PRN (09:15)
--- NOTE | 2017-07-12 09:19 | [facility] Operative Report ---
Operative Report Operative Date Jul 12, 2017. Pre-Operative Diagnosis Degenerative joint disease, right knee Post-Operative Diagnosis Same as preop Procedure(s) Performed Right total knee arthroplasty Surgeon Dr. Rojas Lemon Grower Surgeon(s) Charla Ga PA-C Estimated Blood Loss 25 cc Findings See dictated op note Fluids 1900 Specimens A: right knee bone and tissue Drains None Anesthesia Type MAC Spinal Regional Complication(s) none Disposition Recovery Room / PACU Indications The patient is a 72-year-old female presents with long history of severe right knee tricompartmental DJD and failed outpatient conservative treatments including NSAIDs, bracing, injections and home walking/exercise program. The patient's symptoms have progressed to the point where it has been difficult to perform normal activities of daily living. I have indicated the patient for a right total knee arthroplasty, the risks and benefits and complications of the procedure include but are not limited to infection bleeding damage to bone, nerves, vessels, surrounding soft tissue, blood clots, loss of function, leg length discrepancy, dislocation, failure of the components, need for additional surgery and . The patient wished to proceed with surgery at this time and informed consent was obtained. Appropriate clearances were obtained. Description of Procedure The patient was taken to the operating room and appropriate anesthesia was administered. She was placed supine on the operating room table. A foot roll was placed so we could flex the knee during the procedure as needed. Pneumatic tourniquet was placed on the right upper thigh. The right lower extremity was prepped and draped in usual sterile fashion. Exam demonstrated that she had a varus knee fairly good range of motion. After the leg was sterilely prepped and draped, it was elevated, exsanguinated with Esmarch bandage. Pneumatic tourniquet was raised to 300 mmHg. A midline incision was made anteriorly across the left knee. Skin was incised sharply and subcutaneous flaps were elevated. Incision was made through the medial retinaculum extended up in the mid third of the quadriceps tendon and extended down to the medial tibial tubercle. Intraarticular findings demonstrated that she had significant DJD medial compartment and PFJ [id number] with a varus knee. She did have some tricompartmental osteophytes. The [employer] 2.0 total knee arthroplasty system was used using [employer] (FIG)e MRI templating and her femur sized for a 4, tibia for a 3 component. To expose the knee the infrapatellar fat pad was resected. The lateral synovial bands were released. The cruciate ligaments were resected. The meniscal remnants were resected. The fat pad over the anterior femur just above the articular surface for placement of the component in that area was resected. The knee was flexed and retractors were placed and the custom femoral cutting block was pinned in position and the distal femoral cut was made. Then the 5-in-1 cutting block was placed and the anterior, posterior and chamfer cuts were made for the 5 femur. Then attention was taken back to the tibia which was subluxed anteriorly and the custom tibial cutting block was pinned in position and the proximal tibial cut was made. Then we assessed ligamentous balance in extension and flexion utilizing the 19mm spacer block and drop memo and did some releases around the medial side to help with the balance. At this time, the tibia was then resubluxed and the 3 tibial trial was placed in position, externally rotated laterally with the tibial tubercle. The tibial drill and punch for the stem was used. Next the 4 femoral trial was inserted, centered and the notch cutting devices were used to finish prepping the femur. A trial 10mm tibial articulating surface was inserted assessed ligamentous balance again. The 9 trial insert gave balanced ligaments through full range of motion. At this time the knee was extended and a subperiosteal peel lateral release was performed around the patella. Patella width was measured and the patella was prepped utilizing free hand technique and the 3 drill holes were made for the pegs. The excess lateral facet was beveled off to prevent any impingement. A 32mm circular patella button was placed and the patella tracked centrally. The trials were removed; the orthopedic anesthetic cocktail was injected per protocol. The knee was copiously irrigated with pulsatile lavage antibiotic solution with bacitracin. The final components were then cemented into place and trial tibial articulating surface inserted. Final components were the 4 Oxinium posterior stabilized [employer] 2.0 left femoral component, size 3 primary tibial baseplate and 32mm patella. Once the cement cured, we trialed once more with the 9mm tibial articulating surface and found the knee to be stable throughout full ROM. The trial component was removed and the final 9mm tibial articular surface was inserted. We copiously irrigated out the knee with pulsatile lavage antibiotic solution and bacitracin. The quadriceps and medial retinaculum were closed with interrupted [id number] #1 Vicryl sutures. The knee was taken through full range of motion and repair was secure. Subcutaneous tissues were closed with interrupted 2-0 Vicryl sutures followed by 3-0 V lock and then the skin was closed with dermabond prineo skin closure system. The sterile dressings were applied and an Sanya wrap from the foot to thigh. Tourniquet was let down and the patient had good capillary refill to the extremity. The patient tolerated the procedure well and was taken to the PACU in stable condition. Due to the complex nature of the procedure, the entire surgery was performed with the operational assistance of Gato Ga PA-C. The trade sales assistant, under direct supervision, was involved in the actual performance of all aspects of the surgical procedure including hemostasis, tissue retraction and incision, instrument management, patient positioning, and wound closure. I attest to the content of the Intraoperative Record and any orders documented therein. Any exceptions are noted below. I attest to the content of the Intraoperative Record and any orders documented therein. Any exceptions are noted below.
--- NOTE | 2017-07-12 10:08 | DIAGNOSTIC IMAGING REPORT ---
R KNEE 1 OR 2 VIEWS ROUTINE HISTORY: 72 years-old Female AP/LATERAL IN PACU RIGHT KNEE status post right knee total joint arthroplasty. Degenerative joint disease. COMPARISON: None available TECHNIQUE: 2 views of the right knee FINDINGS: Postoperative changes from recent right knee total joint arthroplasty and patellar resurfacing. Alignment is satisfactory without retained radiopaque foreign body or periprosthetic fracture identified. Expected postsurgical soft tissue swelling and deep tissue air with surgical drain in place. Peripheral vascular disease. IMPRESSION: Right knee total arthroplasty and patellar resurfacing with satisfactory alignment. The above report was generated using voice recognition software. It may contain grammatical, syntax or spelling errors. Electronically signed by: Juan Lazo M.D. 07/12/2017 10:07 AM Dictated Date/Time: 07/12/2017 10:06 AM
--- NOTE | 2017-07-12 10:09 | Anesthesiology Progress Note ---
Anesthesia Post Op Note Date & Time Jul 12, 2017 at 10:03 Vital Signs Pain Intensity: 0 Vital Signs Past 12 Hours Date Time Temp Pulse Resp B/P (MAP) Pulse Ox O2 Delivery O2 Flow Rate FiO2 07/12/17 09:55 90 20 108/57 (71) 98 Nasal Cannula 2 07/12/17 09:45 83 19 119/58 (81) 95 Nasal Cannula 2 07/12/17 09:36 36.4 81 18 114/61 (85) 100 Nasal Cannula 2 07/12/17 05:36 36.7 78 20 146/84 96 Room Air Notes Mental Status: alert / awake / arousable, participated in evaluation Pt Amnestic to Procedure: Yes Nausea / Vomiting: adequately controlled Pain: adequately controlled Airway Patency, RR, SpO2: stable & adequate BP & HR: stable & adequate Hydration State: stable & adequate Neuraxial Anesthesia: was administered, sensory block is resolving Anesthetic Complications: no major complications apparent The patient is a 72 y/o with a history of HTN, DLD, GERD, hypothyroidism and CKD stage III s/p R TKA. The patient was noted to have an irregular heart rhythm preoperatively. A 12 lead EKG showed NSR with premature supraventricular complexes HR 90. The patient's EKG on 06/16/17 was NSR with no ectopy. The patient is asymptomatic and denies a history of palpitations, all other VSS. Intraoperatively and in recovery, the patient continued to have premature supraventricular complexes. She was given a total of 4mg IV metoprolol and Esmolol 15mg IV in the OR for HRs in the 90s which improved her HR to the 80s. The patient feels well in PACU with no complaints. She will be transferred to telemetry overnight for closer monitoring. Internal medicine was consulted and a full report was given.
--- NOTE | 2017-07-12 10:52 | Medical Consult ---
Consultation Date of Consultation: Jul 12, 2017. Attending Physician: Michoacano Rojas D.O. History of Present Illness Patient is a pleasant 72yo C female with history of HTN, HLP and CKD presenting with chronic right knee pain s/p right TKA performed today. We have been consulted to assess frequent ectopy and episodes of tachycardia noted on court recording monitor. Patient had an uncomplicated surgery and is presently resting comfortably without complaint. She denies chest pain, SOB, palpitations or flutter in her chest. She has no known cardiac history, no history of arrhythmia or CAD. She is mildly active and able to climb a flight of stairs without symptoms. Family History Patient denies any relevant family history Social History Smoking Status: Never Smoker Smokeless Tobacco Use: No Alcohol Use: none Drug Use: none Housing Status: lives alone Occupation Status: retired Allergies Coded Allergies: Sulfa Antibiotics (Verified Allergy, Unknown, OCCURED AN INFANT, NO RXN KNOWN, 07/12/17) Home Medications Simvastatin 20mg po daily Lisinopril 20mg po daily Synthroid 112mcg po daily Tramadol PRN Nexium Aleve PRN Current Inpatient Medications Current Inpatient Medications Medications (Trade) Dose Ordered Sig/Vadim Route Start Time Stop Time Status Last Admin Dose Admin Cefazolin Sodium 15 ml @ 3.75 mls/ min PREOP IV 07/12/17 06:00 07/12/17 18:00 07/12/17 07:20 3.75 MLS/MIN Acetaminophen (Tylenol Tab) 1,000 mg PREOP PO 07/12/17 06:00 07/12/17 18:00 07/12/17 06:05 1,000 MG Dexamethasone (Decadron Tab) 8 mg PREOP PO 07/12/17 06:00 07/12/17 18:00 07/12/17 06:04 8 MG Famotidine (Pepcid Tab) 20 mg PREOP PO 07/12/17 06:00 07/12/17 18:00 07/12/17 06:04 20 MG Gabapentin (Neurontin Cap) 300 mg PREOP PO 07/12/17 06:00 07/12/17 18:00 07/12/17 06:04 300 MG Metoclopramide HCl (Reglan Tab) 10 mg PREOP PO 07/12/17 06:00 07/12/17 18:00 07/12/17 06:04 10 MG Tranexamic Acid 1000 mg/Sodium Chloride 110 ml @ 660 mls/hr TODAY@06,0630 IV 07/12/17 06:00 07/12/17 12:00 07/12/17 07:10 660 MLS/HR Ropivacaine 150 mg/Bupivacaine HCl 30 ml/ Epinephrine HCl 0.15 mg/Ketorolac Tromethamine 30 mg/Dexamethasone Sodium Phosphate 4 mg/Ketamine HCl 10 mg/Clonidine 100 mcg/Sodium Chloride 93.35 ml @ 0 mls/hr TODAY@06 INFIL 07/12/17 06:00 07/12/17 12:00 07/12/17 08:45 1 MLS/HR Lactated Ringer's 1,000 ml @ 15 mls/hr Q24H IV 07/12/17 06:00 07/13/17 05:59 07/12/17 06:03 15 MLS/HR Fentanyl Citrate (Fentanyl Inj) 25 mcg Q5M PRN IV 07/12/17 06:45 07/12/17 11:45 Hydromorphone HCl (Dilaudid Inj) 0.5 mg Q5M PRN IV 07/12/17 06:45 07/12/17 11:45 Ondansetron HCl (Zofran Inj) 4 mg ONE PRN IV 07/12/17 06:45 07/12/17 11:45 Ephedrine Sulfate (EpHEDrine SULFATE INJ) 5 mg Q5M PRN IV 07/12/17 06:45 07/12/17 11:45 Atropine Sulfate (Atropine Sulfate 0.1mg/ml Inj) 0.5 mg Q1M PRN IV 07/12/17 06:45 07/12/17 11:45 Levothyroxine Sodium (Synthroid Tab) 112 mcg DAILYBB PO 07/13/17 07:00 08/12/17 06:59 UNV Lisinopril (Zestril Tab) 20 mg QAM PO 07/12/17 09:00 08/11/17 08:59 UNV Simvastatin (Zocor Tab) 20 mg QAM PO 07/12/17 09:00 08/11/17 08:59 UNV Sodium Chloride 1,000 ml @ 100 mls/hr Q10H IV 07/12/17 09:06 07/13/17 09:05 UNV Cefazolin Sodium 2000 mg/Dextrose 65 ml @ 100 mls/hr Q8H IV 07/12/17 09:15 07/12/17 17:53 UNV Oxycodone HCl (Roxicodone Immediate Rel Tab) 1 TABLET FOR PAIN RATING... Q4H PRN PO 07/12/17 09:15 07/26/17 09:14 Morphine Sulfate (MoRPHine SULFATE INJ) 4 mg Q4H PRN IV 07/12/17 09:15 07/26/17 09:14 Acetaminophen (Tylenol Tab) 1,000 mg Q8H PO 07/12/17 09:15 08/11/17 09:14 UNV Senna (Senokot Tab) 17.2 mg HS PO 07/12/17 21:00 08/11/17 20:59 UNV Docusate Sodium (coLACE CAP) 100 mg BID PO 07/12/17 21:00 08/11/17 20:59 UNV Diphenhydramine HCl (Benadryl Cap) 25 mg Q8H PRN PO 07/12/17 09:15 08/11/17 09:14 Multivitamins (Multivitamin Tab) 1 tab QAM PO 07/13/17 09:00 08/12/17 08:59 UNV Ondansetron HCl (Zofran Inj) 4 mg Q6H PRN IV 07/12/17 09:15 08/11/17 09:14 Pantoprazole Sodium (Protonix Tab) 40 mg QAM PO 07/13/17 09:00 08/12/17 08:59 UNV Aspirin (Ecotrin Tab) 325 mg BID PO 07/12/17 21:00 08/11/17 20:59 UNV Ketorolac Tromethamine (Toradol Inj) 30 mg Q6H IV. 07/12/17 09:15 07/14/17 09:14 UNV Review of Systems Constitutional: No fever, No chills Respiratory: No cough, No sputum, No wheezing, No shortness of breath Cardiovascular: No chest pain, No orthopnea, No palpitations Abdomen: No pain, No nausea, No vomiting, No diarrhea, No constipation Genitourinary - Female: No dysuria, No urinary frequency, No urinary urgency Physical Exam Date Time Temp Pulse Resp B/P (MAP) Pulse Ox O2 Delivery O2 Flow Rate FiO2 07/12/17 10:30 87 20 150/60 98 Nasal Cannula 2 07/12/17 10:15 36.6 87 18 137/59 98 Nasal Cannula 2 07/12/17 10:05 85 19 106/67 (83) 100 Nasal Cannula 2 07/12/17 09:55 90 20 108/57 (71) 98 Nasal Cannula 2 07/12/17 09:45 83 19 119/58 (81) 95 Nasal Cannula 2 07/12/17 09:36 36.4 81 18 114/61 (85) 100 Nasal Cannula 2 07/12/17 05:36 36.7 78 20 146/84 96 Room Air General Appearance: WD/WN, no apparent distress Head: normocephalic, atraumatic Eyes: normal inspection, PERRL, sclerae normal ENT: normal ENT inspection Neck: supple, no adenopathy, no JVD Respiratory/Chest: chest non-tender, lungs clear, normal breath sounds, no respiratory distress, no accessory muscle use Cardiovascular: regular rate, rhythm (with occasional ectopy), no edema, no gallop, no murmur Abdomen/GI: normal bowel sounds, non tender, soft Skin: normal color, warm/dry, no rash Laboratory Results Last 24 Hours Test 07/12/17 05:24 Sodium Level 139 mmol/L Potassium Level 4.4 mmol/L Chloride Level 107 mmol/L Carbon Dioxide Level 23 mmol/L Anion Gap 9.0 mmol/L Blood Urea Nitrogen 24 mg/dl Creatinine 1.39 mg/dl Est Creatinine Clear Calc Drug Dose 43.4 ml/min Estimated GFR () 43.2 Estimated GFR (Non- 37.2 BUN/Creatinine Ratio 17.4 Random Glucose 130 mg/dl Calcium Level 9.7 mg/dl Assessment & Plan 72yo C female s/p right TKA performed today with frequent ectopy noted on monitor. 1. Ectopy - patient is presently hemodynamically stable and asymptomatic, in NSR on monitor with occasional narrow complex ectopic beat most consistent with PAC. No cardiac history. Most likely secondary to increased catecholamine state of surgery. -Check magnesium and phosphorous x 1 and correct as needed -Check thyroid studies -Monitor on telemetry overnight 2. Hypertension - patient presently normotensive. -Resume home Lisinopril at discretion of primary team 3. Hyperlipidemia - stable -Resume home Simvastatin 4. CKD - BUN/Cr are at baseline, presently 24 and 1.39 respectively. -Continue to monitor BUN/Cr, UOP -Renal dosing where appropriate -Avoid nephrotoxic agents 5. Hypothyroidism - stable -Check thyroid function tests -Resume home Synthroid Thank you for this consult
[2017-07-12] MEDS: SODIUM CHLORIDE 0.9% 1000ML 1,000 ML IV SCH ×2 (11:56→21:14)
[2017-07-12] MEDS: KETOROLAC TROMETHAMINE 15 MG/ML VIAL IV. SCH ×2 (12:05→17:15)
[2017-07-12 12:24] LABS: PHOSPHORUS 3.1 mg/dl (2.5-4.9)
[2017-07-12] MEDS: SIMVASTATIN 20 MG TAB PO SCH (13:11)
[2017-07-12] MEDS: LISINOPRIL 20 MG TAB PO SCH (13:12)
[2017-07-12] MEDS: ACETAMINOPHEN 500 MG TAB PO SCH ×2 (13:12→21:15)
--- NOTE | 2017-07-12 13:26 | Orthopedic Progress Note ---
Orthopedic Progress Note Date of Service Jul 12, 2017. Subjective Additional Notes: Post-operative progress note Patient seen laying in bed, comfortable, pain well controlled, no acute issues. Objective NAD, AOx3 RLE NVSI +EHL/FHL/TA/GS SILT grossly, CR< 2 seconds, +2DP pulse, compartment soft NT, dressing CDI Date Time Temp Pulse Resp B/P (MAP) Pulse Ox O2 Delivery O2 Flow Rate FiO2 07/12/17 12:18 92 17 123/74 (90) 93 Nasal Cannula 2.0 07/12/17 11:18 91 17 126/63 (84) 94 Nasal Cannula 2.0 07/12/17 10:48 36.7 87 18 127/73 (91) 98 Nasal Cannula 2.0 07/12/17 10:30 87 20 150/60 98 Nasal Cannula 2 07/12/17 10:15 36.6 87 18 137/59 98 Nasal Cannula 2 07/12/17 10:05 85 19 106/67 (83) 100 Nasal Cannula 2 07/12/17 09:55 90 20 108/57 (71) 98 Nasal Cannula 2 07/12/17 09:45 83 19 119/58 (81) 95 Nasal Cannula 2 07/12/17 09:36 36.4 81 18 114/61 (85) 100 Nasal Cannula 2 07/12/17 05:36 36.7 78 20 146/84 96 Room Air Assessment & Plan Assessment: s/p R TKA Plan: -Ancef x- 24 -DVT ppx: EC ASA BID -WBAT RLE -PT/OT -Pain controlled -PO XR: Well aligned well fixed total knee prosthesis without evidence of feature, dislocation. -am labs -Admitted to tele post op -Medicine consulted
[2017-07-12] MEDS: OXYCODONE HCL IR 5 MG TAB (IMMEDIATE RELEASE) PO PRN (14:09)
[2017-07-12] MEDS ORDERED: MAGNESIUM SULFATE 1GM / D5W 1 GM in PREMIXED IN D5W 100 ML IV ONE (16:00)
[2017-07-12] MEDS: CEFAZOLIN IV 2,000 MG in SYRINGE 0 ML IV SCH (17:15)
[2017-07-12] MEDS: DOCUSATE SODIUM 100 MG CAP PO SCH (21:17)
[2017-07-12] MEDS: SENNA 8.6 MG TAB PO SCH (21:18)
[2017-07-12] MEDS: ASPIRIN 325 MG ECTAB PO SCH (21:18)
[2017-07-12] MEDS: PANTOprazole SOD 40 MG TAB PO SCH (21:19)
[2017-07-13] VITALS (11 sets, daily range): BP systolic 109–145; BP diastolic 61–80; PULSE 75–96; TEMP 36.6–36.9; O2SAT 95–99
[2017-07-13] MEDS: CEFAZOLIN IV 2,000 MG in SYRINGE 0 ML IV SCH (00:19)
[2017-07-13] MEDS: KETOROLAC TROMETHAMINE 15 MG/ML VIAL IV. SCH ×3 (00:20→12:12)
[2017-07-13] MEDS: SODIUM CHLORIDE 0.9% 1000ML 1,000 ML IV SCH (05:47)
[2017-07-13] MEDS: ACETAMINOPHEN 500 MG TAB PO SCH ×3 (05:48→22:05)
[2017-07-13] MEDS: LEVOTHYROXINE 112 MCG TAB PO SCH (05:48)
--- NOTE | 2017-07-13 07:29 | Discharge Instructions ---
Discharge Instructions Date of Service Jul 13, 2017. Admission Reason for Admission: Right Knee Osteoarthritis Discharge Discharge Diagnosis / Problem: sp right TKA Discharge Goals Goal(s): Decrease discomfort, Improve function, Increase independence Activity Recommendations Activity Limitations: per Instructions/Follow-up section . Instructions / Follow-Up Instructions / Follow-Up ACTIVITY RECOMMENDATIONS: SELF CARE INSTRUCTIONS AFTER TOTAL KNEE REPLACEMENT A. You may need to continue a physical therapy program after discharge from the hospital. There are several options available to you. Your doctor will assist you in selecting the best one for you. 1. An out-patient facility 2 to 3 times a week for therapy or home therapy. 2. Continue working on all exercises taught to you in the hospital. Your goals should be to increase bending of your knee to 90 degrees and beyond and to fully straighten your knee. B. You may progress at your own pace from walking with a walker or crutches to a cane; then to no assistive devices. C. Make walking a part of your daily routine. Be up as much as comfortable with rest periods throughout the day. Rest with leg elevation is very important. Use the ice wrap frequently for the first 3-4 weeks. D. There are no restrictions on activities. You may ride in a car, shop, participate in technical services coordinator and all social activities. E. Wear the long elastic stockings (CARLO hose) 20 hours a day for 2 weeks after surgery. They can be removed several times a day for laundering and for a bath. F. You may shower, no tub baths until cleared by your doctor. SPECIAL CARE INSTRUCTIONS: VERY IMPORTANT TO READ AND REVIEW A. There are a few signs you need to watch for after you are home. Call [facility] if you notice any of the followin. Increased severe knee pain. Some pain is expected especially when you exercise. 2. Increased swelling in your leg or knee; pain or swelling of the calf muscle in either lower leg. 3. Any fluid drainage from the incision. 4. Shortness of breath or chest pain. B. Please call [facility] at if you have any concerns or questions about your operation or recovery. The doctor or his nurse will return your call promptly. C. You must take antibiotics before dental work, bladder, bowel or other surgery. Your doctor will provide you with a permanent care to carry describing this precaution. IMPORTANT: * REMEMBER TO TAKE ASPIRIN, 81 MG, TWICE DAILY FOR 4 WEEKS UNLESS OTHERWISE DIRECTED. THIS IS YOUR BLOOD THINNER. * HIGH RISK PATIENTS MAY BE PRESCRIBED A STRONGER BLOOD THINNER. THIS WILL BE PROVIDED AT DISCHARGE. * CALL IF INCREASED PAIN, REDNESS, DRAINAGE OR FEVER GREATER THAT 101. * WEAR CARLO HOSE 20 HOURS PER DAY FOR 2 WEEKS. * DERMABOND Prineo- This is a mesh tape dressing that is covered with glue. It should remain in place until the incision is properly healed, usually 10-14 days. This dressing is designed to naturally slough off. You may trim the excess mesh tape as it peels off. Incision may be briefly wet in a shower. Dry immediately by blotting with a clean, dry towel. Do not bath or swim until instructed by your doctor. Do not scratch, rub, or pick at the dressing. Do not apply any topical ointments or lotions until dressing is completely removed and/or instructed by your doctor. There may be a small piece of suture material at one end of your incision. Do not pull or trim this. If it is bothersome or catching on clothing, you may cover it with a band-aid. FOLLOW UP VISIT: If appointment is not already scheduled: Please call [facility] to make a follow-up appointment for 2 weeks after your surgery at . Current Hospital Diet Patient's current hospital diet: AHA Diet (Heart Healthy) Discharge Diet Recommended Diet: Regular Diet Procedures Procedures Performed: Right total knee arthroplasty Pending Studies Studies pending at discharge: no Laboratory Results Hemoglobin A1c Test 06/15/17 11:49 Range/Units Estimated Average Glucose 120 mg/dl Hemoglobin A1c 5.8 H 4.5-5.6 % Medical Emergencies . Who to Call and When: Medical Emergencies: If at any time you feel your situation is an emergency, please call 911 immediately. . Non-Emergent Contact Non-Emergency issues call your: Surgeon . "Provider Documentation" section prepared by Gosia Stock. .
[2017-07-13 07:33] LABS: HEMATOCRIT 33.9 % (37-47); HEMOGLOBIN 11.2 g/dL (12.0-16.0); MEAN CELL VOLUME 88.5 fL (80-100); MEAN CORPUSCULAR HEMOGLOBIN 29.2 pg (25-34); MEAN PLATELET VOLUME 12.7 fL (7.4-10.4); PLATELET COUNT 147 K/uL (130-400); RED CELL DISTRIBUTION WIDTH CV 13.6 % (11.5-14.5); RED CELL DISTRIBUTION WIDTH SD 43.7 fL (36.4-46.3); WHITE BLOOD COUNT 10.83 K/uL (4.8-10.8)
[2017-07-13 08:03] LABS: CALCIUM 8.5 mg/dl (8.5-10.1); CREATININE 1.55 mg/dl (0.60-1.20); POTASSIUM 4.5 mmol/L (3.5-5.1)
[2017-07-13] MEDS: SIMVASTATIN 20 MG TAB PO SCH (08:05)
[2017-07-13] MEDS: ASPIRIN 325 MG ECTAB PO SCH (08:05)
[2017-07-13] MEDS: LISINOPRIL 20 MG TAB PO SCH (08:05)
[2017-07-13] MEDS: MULTIVITAMIN TAB PO SCH (08:05)
[2017-07-13] MEDS: DOCUSATE SODIUM 100 MG CAP PO SCH ×2 (08:05→21:07)
--- NOTE | 2017-07-13 09:25 | Clinical Documentation Query ---
CLINICAL DOCUMENTATION QUERY Internal medicine consult states a history of CKD, unspecified. Documenting the stage of CKD will improve data integrity and will help clarify vague terms such as "renal insufficiency" or "chronic renal failure." The stages of CKD according to the [employer] are as follows: Stage I: GFR >90 Stage II: GFR 60-89 Stage III: GFR 30-59 Stage IV: GFR 15-29 Stage V: GFR <15 In your clinical opinion is this patient being managed for: ( ) Chronic kidney disease, stage 3 ( ) Not Agree ( ) Other explanation of clinical findings (Please Explain) ( ) Unable to determine (Please Define) ( x ) Need to Discuss The medical record reflects the following clinical findings, treatment, and risk factors. Clinical Indicators: As above. GFR 32-40. Treatment: daily PRP monitoring. Risk Factors: Age and home NSAID & BRANDON use. Please clarify and document your clinical opinion in the progress notes and discharge summary. Terms such as "probable", "suspected", "likely", "questionable", "possible", or "still to be ruled out" are acceptable. IF IN AGREEMENT, YOU MUST DOCUMENT ABOVE DIAGNOSTIC STATEMENT IN DAILY PROGRESS NOTES AND DISCHARGE SUMMARY. This document is not part of the patient's record. Thank You, Joshua Madera, RN [phone]
[2017-07-13] MEDS: PANTOprazole SOD 40 MG TAB PO SCH (09:39)
--- NOTE | 2017-07-13 14:13 | Orthopedic Progress Note ---
Orthopedic Progress Note Date of Service Jul 13, 2017. Subjective Additional Notes: Patient seen sitting in chair at bedside, comfortable, pain well controlled, currently 06/12, ambulating well with PT, denies N/V/SOB/CP. Objective NAD, AOx3 RLE NVSI +EHL/FHL/TA/GS SILT grossly, CR< 2 seconds, +2DP pulse, compartment soft NT, dressing CDI Date Time Temp Pulse Resp B/P (MAP) Pulse Ox O2 Delivery O2 Flow Rate FiO2 07/13/17 12:00 95 Room Air 07/13/17 11:59 36.9 85 16 138/74 (95) 96 07/13/17 09:45 89 99 07/13/17 08:11 36.6 96 18 140/80 (100) 99 07/13/17 08:00 95 Room Air 07/13/17 04:00 CPAP 07/13/17 03:40 36.6 75 18 109/63 (78) 95 BiPAP 07/12/17 23:59 Room Air 07/12/17 23:33 36.6 75 18 109/63 (78) 95 BiPAP 07/12/17 20:00 Room Air 07/12/17 19:35 36.9 82 20 121/69 (86) 95 Room Air 07/12/17 16:00 95 Room Air 07/12/17 15:34 37.1 83 18 117/65 (82) 95 Room Air Laboratory Results 24 Hours: Test 07/13/17 07:00 Hematocrit 33.9 % Hemoglobin 11.2 g/dL Prothromb Time International Ratio 1.0 Prothrombin Time 10.6 SECONDS Assessment & Plan Assessment: s/p R TKA POD#1 Plan: -Ancef x 24 -DVT ppx: EC ASA BID, will change to 81mg BID secondary to underlying kidney disease -WBAT RLE -PT/OT -Pain controlled -PO XR: Well aligned well fixed total knee prosthesis without evidence of feature, dislocation. -am labs - Hgb 11.2 -Admitted to tele post op -Medicine consulted -DC planning likely tomorrow , home with
[2017-07-13] MEDS: SENNA 8.6 MG TAB PO SCH (21:06)
[2017-07-13] MEDS: ASPIRIN 81 MG ECTAB PO SCH (21:07)
[2017-07-13] MEDS: OXYCODONE HCL IR 5 MG TAB (IMMEDIATE RELEASE) PO PRN (23:25)
[2017-07-14 03:38] VITALS: BP 131/69; PULSE 87; TEMP 36.9; O2SAT 96
[2017-07-14] MEDS: OXYCODONE HCL IR 5 MG TAB (IMMEDIATE RELEASE) PO PRN ×2 (04:05→13:15)
[2017-07-14] MEDS: LEVOTHYROXINE 112 MCG TAB PO SCH (05:31)
[2017-07-14] MEDS: ACETAMINOPHEN 500 MG TAB PO SCH ×2 (05:31→13:16)
--- NOTE | 2017-07-14 07:40 | Orthopedic Progress Note ---
Orthopedic Progress Note Date of Service Jul 14, 2017. Subjective Post OP Day: 2 Reports: feeling well, Denies: chest pain, SOB, nausea / vomiting, light headedness, calf pain Objective calves soft nontender, N/V intact, capillary refill less than 2 sec., dressing C /D/I, incision C/D/I, A&O x3, toes mobile Date Time Temp Pulse Resp B/P (MAP) Pulse Ox O2 Delivery O2 Flow Rate FiO2 07/14/17 04:00 CPAP 07/14/17 03:38 36.9 87 18 131/69 (89) 96 CPAP 07/13/17 23:59 CPAP 07/13/17 23:35 36.8 82 18 122/61 (81) 98 CPAP 07/13/17 20:00 96 Room Air 07/13/17 19:36 36.8 84 20 115/68 (84) 96 Room Air 07/13/17 16:23 36.9 83 18 133/68 (89) 96 Room Air 07/13/17 16:00 96 Room Air 07/13/17 12:00 95 Room Air 07/13/17 11:59 36.9 85 16 138/74 (95) 96 07/13/17 09:45 89 99 07/13/17 08:11 36.6 96 18 140/80 (100) 99 07/13/17 08:00 95 Room Air Laboratory Results 24 Hours: Test 07/14/17 06:59 Additional Notes: Item Value Date Time Blood Urea Nitrogen 32 mg/dl H 07/13/17 0700 Creatinine 1.55 mg/dl H 07/13/17 0700 Assessment & Plan Assessment: s/p R TKA POD#2 Plan: -DVT ppx: EC ASA BID, 81mg BID secondary to underlying kidney disease -WBAT RLE -PT/OT -Pain controlled -PO XR: Well aligned well fixed total knee prosthesis without evidence of feature, dislocation. -am labs - Hgb 10.6 -Admitted to tele post op -Medicine consulted - bun/cr trending down to baseline. cr 1.37, near baseline today. -DC planning likely today , home OP PT
[2017-07-14 07:48] VITALS: BP_SYST 112; PULSE 73; TEMP 36.7; O2SAT 93
[2017-07-14 07:50] LABS: CALCIUM 8.4 mg/dl (8.5-10.1); CREATININE 1.37 mg/dl (0.60-1.20); POTASSIUM 4.6 mmol/L (3.5-5.1)
[2017-07-14] MEDS: PANTOprazole SOD 40 MG TAB PO SCH (07:53)
[2017-07-14] MEDS: MULTIVITAMIN TAB PO SCH (07:53)
[2017-07-14] MEDS: ASPIRIN 81 MG ECTAB PO SCH (07:53)
[2017-07-14] MEDS: SIMVASTATIN 20 MG TAB PO SCH (07:53)
[2017-07-14] MEDS: LISINOPRIL 20 MG TAB PO SCH (07:53)
[2017-07-14] MEDS: DOCUSATE SODIUM 100 MG CAP PO SCH (07:53)
[2017-07-14 07:58] LABS: HEMATOCRIT 32.4 % (37-47); HEMOGLOBIN 10.6 g/dL (12.0-16.0); MEAN CELL VOLUME 89.5 fL (80-100); MEAN CORPUSCULAR HEMOGLOBIN 29.3 pg (25-34); MEAN CORPUSCULAR HGB CONC 32.7 g/dl (32-36); MEAN PLATELET VOLUME 12.4 fL (7.4-10.4); PLATELET COUNT 120 K/uL (130-400); RED CELL DISTRIBUTION WIDTH CV 14.1 % (11.5-14.5); RED CELL DISTRIBUTION WIDTH SD 46.2 fL (36.4-46.3); WHITE BLOOD COUNT 6.19 K/uL (4.8-10.8)
[2017-07-14 08:00] VITALS: O2SAT 95
[2017-07-14] MEDS ORDERED: ASPEC81 PO (08:51)
[2017-07-14] MEDS ORDERED: ONDA-170 PO (08:51)
[2017-07-14] MEDS ORDERED: SENN-61 PO (08:51)
[2017-07-14] MEDS ORDERED: ACET-24 PO (08:51)
[2017-07-14] MEDS ORDERED: RXC5 PO (08:51)
[2017-07-14 11:28] VITALS: BP 110/62; PULSE 72; TEMP 36.9; O2SAT 97
[2017-07-14 12:00] VITALS: O2SAT 95
[2017-07-14 13:44] VITALS: BP 110/62; PULSE 72; TEMP 36.9; O2SAT 95
== END 2017-07-14 15:25 | disposition home or self-care (01) | DRG 470 ==
LOC: C.ACU 04:51 → C.2T 09:55 → ENRESERV 10:18 → UNDOADMIN 10:49 → C.2T 10:49
PROVIDERS: ADMIT Orthopaedic Surgery; ATTEND Orthopaedic Surgery
PROC: 0SRC0J9 Replacement of Right Knee Joint with Synthetic Substitute, Cemented, Open Approach (ICD-10-PCS; principal; 2017-07-12 07:00)
DX: M17.11 Unilateral primary osteoarthritis, right knee (principal); I12.9 Hypertensive chronic kidney disease with stage 1 through stage 4 chronic kidney disease, or unspecified chronic kidney disease; E78.00 Pure hypercholesterolemia, unspecified; G47.30 Sleep apnea, unspecified; E03.9 Hypothyroidism, unspecified; N18.9 Chronic kidney disease, unspecified; Z96.652 Presence of left artificial knee joint; Z88.2 Allergy status to sulfonamides; Z98.51 Tubal ligation status